=== PATIENT | male | born 1965 | race Caucasian/White ===

== ENCOUNTER 2018-04-21 00:24 | Observation (INO) ==
[2018-04-21] MEDS ORDERED: SODIUM CHLORIDE 0.9% 1,000 ML IV STA (01:08)
[2018-04-21 01:31] LABS: Basophils % 0.4 % (0.0-0.8); Eosinophils % 0.7 % (0.00-10.9); Hematocrit 43.8 VOL% (42.0-52.0); Hemoglobin 15.2 GM/DL (14.0-18.0); Immature Granulocytes % 0.7 %; Immature Granulocytes Absolute 0.04 #; Lymphocytes # 2.1 10*3/uL (1.4-4.0); Lymphocytes % 37.3 % (21.2-54.2); Mean Corpuscular HGB Conc 34.7 GM/DL (32-36); Mean Corpuscular Hemoglobin 30 PG (27-34); Mean Corpuscular Volume 86.9 FL (87-102); Mean Platelet Volume 9.9 FL (9.6-12.0); Monocytes # 0.4 10*3/uL (0.11-0.8); Monocytes % 7.7 % (1.7-12.7); Neutrophils % 53.2 % (38.7-73.9); Platelet Count 173 T/CUMM (130-400); Red Blood Count 5.04 MC/CUMM (3.8-5.5); Red Cell Distribution Width 12.5 % (9.3-17.3); White Blood Count 5.7 T/CUMM (4-12)
[2018-04-21 01:35] LABS: PT Patient Result 10.9 SECS
[2018-04-21 01:37] LABS: Apearance,Urine CLEAR (Clear); Bilirubin,Urine Negative (Negative); Blood, Urine Small mg/dL (Negative); Glucose,Urine (UA) Negative (Negative); Ketones,Urine Negative (Negative); Mucus,Urine Occasional /LPF (Occasional); Nitrite,Urine Negative (Negative); Protein,Urine Negative; RBC,Urine 1 /HPF (0-4); Urine Color Yellow (Yellow); WBC,Urine <1 /HPF (0-6)
[2018-04-21 01:45] LABS: Alanine Aminotransferase 101 U/L (16-61); Albumin 3.7 G/DL (3.4-5.0); Alkaline Phosphatase 73 U/L (45-117); Aspartate Amino Transferase 55 U/L (0-37); Barbiturates Screen,Urine Negative (Negative); Benzodiazepines Screen,Urine Positive (Negative); Blood Urea Nitrogen 9 MG/DL (7-18); Calcium 8.5 MG/DL (8.5-10.1); Cannabinoid Screen,Urine Negative (Negative); Glucose 100 MG/DL (74-106); Opiate Screen,Urine Negative (Negative); Osmolality,Calculated 277.4 MOS/KG (273-304); Phencyclidine Screen,Urine Negative (Negative); Potassium 3.5 MMOL/L (3.5-5.1); Sodium 140 MMOL/L (136-145); Total Protein 7.5 G/DL (6.4-8.3); Troponin I < 0.015 NG/ML (0.00-0.045)
[2018-04-21] MEDS ORDERED: KETOROLAC 30 MG/1 ML VIAL IV STA (02:50)
[2018-04-21] MEDS ORDERED: KETOROLAC 30 MG/1 ML VIAL ONE (02:51)
[2018-04-21] MEDS ORDERED: ONDANSETRON 4 MG/2 ML VIAL IV PRN (03:14)
[2018-04-21] MEDS ORDERED: ACETAMINOPHEN 325 MG TABLET PO PRN (03:14)
[2018-04-21] MEDS ORDERED: ONDANSETRON 4 MG/2 ML VIAL ONE (03:26)
[2018-04-21] MEDS: SODIUM CHLORIDE 0.9% 1,000 ML IV SCH ×4 (04:00→21:26)
[2018-04-21 04:39] LABS: Basophils % 0.3 % (0.0-0.8); Eosinophils % 0.3 % (0.00-10.9); Hematocrit 42.8 VOL% (42.0-52.0); Hemoglobin 14.6 GM/DL (14.0-18.0); Immature Granulocytes % 0.6 %; Immature Granulocytes Absolute 0.04 #; Lymphocytes # 2.4 10*3/uL (1.4-4.0); Lymphocytes % 37.7 % (21.2-54.2); Mean Corpuscular HGB Conc 34.1 GM/DL (32-36); Mean Corpuscular Hemoglobin 30 PG (27-34); Mean Corpuscular Volume 88.1 FL (87-102); Mean Platelet Volume 9.7 FL (9.6-12.0); Monocytes # 0.4 10*3/uL (0.11-0.8); Monocytes % 6.7 % (1.7-12.7); Neutrophils # 3.5 10*3/uL (1.4-7.4); Neutrophils % 54.4 % (38.7-73.9); Platelet Count 166 T/CUMM (130-400); Red Blood Count 4.86 MC/CUMM (3.8-5.5); Red Cell Distribution Width 12.5 % (9.3-17.3); White Blood Count 6.4 T/CUMM (4-12)
[2018-04-21 04:59] LABS: Calcium 7.8 MG/DL (8.5-10.1); Osmolality,Calculated 280.1 MOS/KG (273-304); Potassium 3.6 MMOL/L (3.5-5.1); Risk Ratio 4.81; VLDL CHOLESTEROL 37.2 MG/DL
[2018-04-21] MEDS ORDERED: POTASSIUM CHLORIDE 20 MEQ TABLET PO PRN (08:39)
[2018-04-21] MEDS: SERTRALINE 50 MG TABLET PO SCH (11:15)
[2018-04-21] MEDS: HYOSCYAMINE 0.125 MG TABLET PO SCH ×2 (11:15→21:25)
[2018-04-21] MEDS: PANTOPRAZOLE 40 MG TABLET PO SCH (11:15)
[2018-04-21] MEDS: ENOXAPARIN 40 MG/0.4 ML SYRINGE SUBCUT SCH (11:17)
[2018-04-21] MEDS: MUPIROCIN 2% OINT 22 GM TUBE TOP SCH (21:27)
[2018-04-22] MEDS: SODIUM CHLORIDE 0.9% 1,000 ML IV SCH ×2 (04:03→05:57)
[2018-04-22] MEDS ORDERED: amLODIPine 5 MG TABLET PO SCH (09:00)
[2018-04-22] MEDS: PANTOPRAZOLE 40 MG TABLET PO SCH (09:03)
[2018-04-22] MEDS: MUPIROCIN 2% OINT 22 GM TUBE TOP SCH (09:04)
[2018-04-22] MEDS: ENOXAPARIN 40 MG/0.4 ML SYRINGE SUBCUT SCH (09:05)
[2018-04-22] MEDS: SERTRALINE 50 MG TABLET PO SCH (09:07)
[2018-04-22] MEDS: HYOSCYAMINE 0.125 MG TABLET PO SCH (09:09)
[2018-04-22] MEDS ORDERED: LOSARTAN 25 MG TABLET PO SCH (09:30)
[2018-04-22 11:36] VITALS: BP 157/90
== END 2018-04-22 15:35 | disposition home or self-care (01) ==
LOC: EDBD → EDUNIT# → N.ED 00:24 → N.EDINP 00:24 → N.TELEN 04:53
PROVIDERS: ADMIT Internal Medicine; ATTEND Internal Medicine